=== PATIENT | male | born 1970 | race Caucasian/White ===

== ENCOUNTER 2020-04-02 07:44 | Day surgery (SDC) | payer BC ==
[2020-04-02] MEDS ORDERED: LORazepam 1 MG Tab PO SCH (08:05)
--- NOTE | 2020-04-02 08:06 | PCM.PREANE ---
Preanesthetic Assessment - Anesthesia/Transfusion/Family Hx Anesthesia History: Prior Anesthesia Without Reaction Family History of Anesthesia Reaction: No Transfusion History: No Prior Transfusion(s) Intubation History: Unknown - Review of Systems General: No Symptoms Pulmonary: No Symptoms Cardiovascular: No Symptoms Gastrointestinal: No Symptoms Neurological: No Symptoms Other: Reports: None - Physical Assessment NPO Status Date: 04/01/20 NPO Status Time: 23:30 ASA Class: 2 Mental Status: Alert & Oriented x3 Airway Class: Mallampati = 2 Dentition: Reports: Normal Dentition Thyro-Mental Finger Breadths: 3 Mouth Opening Finger Breadths: 3 ROM/Head Extension: Full Lungs: Clear to Auscultation, Normal Respiratory Effort Cardiovascular: Regular Rate, Regular Rhythm - Allergies Allergies/Adverse Reactions: Allergies Allergy/AdvReac Type Severity Reaction Status Date / Time No Known Allergies Allergy Verified 04/01/20 21:14 - Anesthesia Plan Beta Josefina: Metoprolol Med Last Dose Date: 04/01/20 Med Last Dose Time: 11:00 - Acknowledgements Anesthesia Type Planned: MAC Pt an Appropriate Candidate for the Planned Anesthesia: Yes Alternatives and Risks of Anesthesia Discussed w Pt/Guardian: Yes Pt/Guardian Understands and Agrees with Anesthesia Plan: Yes PreAnesthesia Questionnaire HEENT History: Reports: Impaired Vision, Other (See Below) Other HEENT History: had surgery on his eyes at 3 years old because his eyes rolled. he had a muscle cut in one eye and now has depth perception problems. Cardiovascular History: Reports: High Cholesterol, Hypertension Respiratory History: Reports: None Gastrointestinal History: Reports: GERD Musculoskeletal History: Reports: Other (See Below) Neurological History: Reports: None Psychiatric History: Reports: Anxiety, Depression, Other (See Below) Other Psychiatric History: get hives when get nervous Endocrine/Metabolic History: Reports: Obesity/BMI 30+ Hematologic History: Reports: None Oncologic (Cancer) History: Reports: None Dermatologic History: Reports: Other (See Below) Other Dermatologic History: gets hives when gets nervous - Infectious Disease History Infectious Disease History: Reports: Influenza - Past Surgical History GI Surgical History: Reports: Colonoscopy, Hernia Repair/Other Musculoskeletal Surgical History: Reports: ORIF (left ankle) - SUBSTANCE USE Smoking Status *Q: Former Smoker - HOME MEDS Home Medications: Home Meds ALPRAZolam [Xanax] 0.25 mg PO DAILY PRN 05/19/19 [History] Dicyclomine [Bentyl] 10 mg PO DAILY PRN 05/19/19 [History] Enalapril/Hydrochlorothiazide [Enalapril-HCTZ 5-12.5 MG] 1 each PO DAILY [History] Escitalopram [Lexapro] 20 mg PO DAILY 05/19/19 [History] Metoprolol Succinate [Toprol XL 50mg] 50 mg PO DAILY 05/19/19 [History] Multivit-Min/Folic/Vit K/Lycop [One Daily Men's 50 Plus D3 Tab] 1 each PO DAILY 05/19/19 [History] Omeprazole Magnesium [Prilosec Otc] 20 mg PO DAILY 05/19/19 [History] Florence's Wort 300 mg PO TID 05/19/19 [History] atorvaSTATin [Lipitor] 40 mg PO DAILY 05/19/19 [History] buPROPion [Wellbutrin] 100 mg PO DAILY 05/19/19 [History] diphenhydrAMINE [Benadryl] 50 mg PO DAILY PRN 05/19/19 [History] Fenofibrate,Micronized [Fenofibrate] 200 mg PO DAILY 05/20/19 [History] Aspirin [Halfprin] 81 mg PO DAILY 04/01/20 [History] Carboxymethylcellulose Sodium [Artificial Tears] 1 dose EYEBOTH ASDIRECTED 04/01 [History] Fish Oil/[place]-3 Fatty Acids [Fish Oil 1,000 MG] 1 gm PO DAILY 04/01/20 [History ] Melatonin 5 mg PO BEDTIME PRN 04/01/20 [History] - CURRENT (IN HOUSE) MEDS Current Meds: Current Medications Brimonidine Tartrate (Alphagan 0.2% Oph Soln) 0 ml EYERT ASDIRECTED [place] Stop: 04/02/20 18:00 Cefuroxime Sodium (Zinacef) 0 mg EYERT ASDIRECTED [place] Stop: 04/02/20 18:00 Lidocaine HCl (Xylocaine-Mpf 1%) 0 ml INJECT ASDIRECTED [place] Stop: 04/02/20 18:00 Phenylephrine HCl (Chidi-Synephrine 2.5% Oph Soln) 0 ml EYERT ASDIRECTED [place] Stop: 04/02/20 18:00 Pilocarpine HCl (Pilocar 4% Ophth Soln) 0 ml EYERT ASDIRECTED [place] Stop: 04/02/20 18:00 Polymyxin/Trimethoprim Sulfate (Polytrim Ophth Soln) 0 ml EYERT ASDIRECTED [place] Stop: 04/02/20 18:00 Tetracaine HCl (Tetracaine 0.5% Steri-Unit Flor) 0 ml EYEBOTH ASDIRECTED [place] Stop: 04/02/20 18:00 Tropicamide (Mydriacyl 1% Ophth Soln) 0 ml EYERT ASDIRECTED [place] Stop: 04/02/20 18:00
[2020-04-02] MEDS: Polymyxin B/Trimethoprim 10 ML Bottle EYERT SCH ×4 (08:11→10:08)
[2020-04-02] MEDS: Phenylephrine 2.5% Ophth Soln 2 ML Bot EYERT SCH ×6 (08:16→09:49)
[2020-04-02] MEDS: Lidocaine 1% PF 2 ML SDV INJECT SCH ×2 (08:16→09:56)
[2020-04-02] MEDS: Tetracaine HCl/PF 0.5% 4 ML Bottle EYEBOTH SCH ×3 (08:16→09:55)
[2020-04-02] MEDS: Cefuroxime 10 MG/ML SYRINGE EYERT SCH ×2 (08:17→10:07)
[2020-04-02] MEDS: Brimonidine 0.2% Ophth Soln 5 ML Bottle EYERT SCH ×4 (08:17→10:08)
[2020-04-02] MEDS: Pilocarpine 4% Ophth Soln 15 ML Bot EYERT SCH ×2 (08:17→10:08)
[2020-04-02] MEDS: Tropicamide 1% Ophth Soln 15 ML Bottle EYERT SCH ×4 (08:30→09:30)
--- NOTE | 2020-04-02 09:56 | PCM48HPAN ---
Post Anesthesia Note - EVALUATION WITHIN 48HRS OF ANESTHETIC Vital Signs in Normal Range: Yes Patient Participated in Evaluation: Yes Respiratory Function Stable: Yes Airway Patent: Yes Cardiovascular Function Stable: Yes Hydration Status Stable: Yes Pain Control Satisfactory: Yes Nausea and Vomiting Control Satisfactory: Yes Mental Status Recovered: Yes Vital Signs: Last Vital Signs Temp 36.1 C 04/02/20 07:45 Pulse 70 04/02/20 07:45 Resp 16 04/02/20 07:45 BP 141/83 H 04/02/20 07:45 Pulse Ox 95 04/02/20 07:45
== END 2020-04-02 10:17 | disposition home or self-care (01) ==
LOC: JD.SDS 07:44
PROVIDERS: ATTEND Ophthalmology
DX: H25.043 Posterior subcapsular polar age-related cataract, bilateral (principal); H25.033 Anterior subcapsular polar age-related cataract, bilateral; H16.223 Keratoconjunctivitis sicca, not specified as Sjogren's, bilateral; H02.834 Dermatochalasis of left upper eyelid; H02.831 Dermatochalasis of right upper eyelid; F41.9 Anxiety disorder, unspecified; F32.9 Major depressive disorder, single episode, unspecified; E78.00 Pure hypercholesterolemia, unspecified; I10 Essential (primary) hypertension; K21.9 Gastro-esophageal reflux disease without esophagitis; E66.9 Obesity, unspecified; Z87.891 Personal history of nicotine dependence; Z79.82 Long term (current) use of aspirin; Z79.899 Other long term (current) drug therapy; Z68.31 Body mass index [BMI] 31.0-31.9, adult
CPT/HCPCS: 66984; A9270; C1780; J0697; J2001

== ENCOUNTER 2023-03-09 08:36 | Emergency (ER) | payer BC | END 2023-03-09 12:00 | disposition home or self-care (01) | LOC: JD.ED 08:36 | DX: M54.50 Low back pain, unspecified (principal); E78.00 Pure hypercholesterolemia, unspecified; I10 Essential (primary) hypertension; K21.9 Gastro-esophageal reflux disease without esophagitis; E66.9 Obesity, unspecified; Z79.899 Other long term (current) drug therapy; Z79.82 Long term (current) use of aspirin; Z68.32 Body mass index [BMI] 32.0-32.9, adult | CPT/HCPCS: 99283 ==